=== PATIENT | female | born 1975 | race Caucasian/White ===

== ENCOUNTER 2019-05-29 13:23 | Emergency (ER) | payer OTHER, SELFPAY ==
[2019-05-29 13:41] VITALS: BP 134/91; PULSE 100; RESP 20; TEMP 37; O2SAT 97
--- NOTE | 2019-05-29 13:54 | ED.NAVMDI ---
HPI - Nausea/Vomiting/Diarrhea General Chief complaint: Nausea/Vomiting/Diarrhea Stated complaint: vomiting/body aches/headache Source: patient Mode of arrival: ambulatory Limitations: no limitations History of Present Illness HPI Narrative: 44 year old female presents to urgent care with complaints of nausea, vomiting, body aches, headache, chills diffuse abdominal pain since yesterday morning. Patient reports that her daughter had similar symptoms approximately 3 to 4 weeks ago. Patient reports that she was diagnosed with influenza B approximately 2 weeks ago. Patient reports that she was able to eat toast and drink Gatorade today with no difficulties. Patient denies recent travel. Patient is a non-smoker. Patient denies ear pain, cough, nasal congestion or runny nose MD elicited complaint: nausea and vomiting Onset (ago): day(s) (1) Associated nausea: Yes Associated abdominal pain: Yes Location of pain: diffuse Pain consistency: intermittent Quality: cramping Exacerbating factors: eating Relieving factors: none Context: sick contacts Related Data Home Medications Medication Instructions Recorded Confirmed albuterol sulfate 90 mcg/actuation 1 inhalation INHALATION Q4H 02/28/19 04/30/19 aerosol inhaler alprazolam 0.5 mg tablet 0.5 mg PO DAILY 02/28/19 04/30/19 budesonide-formoterol HFA 80 2 puff INHALATION Q12H 02/28/19 04/30/19 mcg-4.5 mcg/actuation aerosol inhaler cholecalciferol (vitamin D3) 125 5,000 unit PO DAILY 02/28/19 04/30/19 mcg (5,000 unit) capsule lansoprazole 30 mg capsule,delayed 30 mg PO DAILY 02/28/19 04/30/19 release montelukast 10 mg tablet 10 mg PO DAILY 02/28/19 04/30/19 zolpidem 5 mg tablet 5 mg PO ONCE 02/28/19 04/30/19 lamotrigine 25 mg tablet 25 mg PO DAILY tablet 04/30/19 04/30/19 quetiapine 50 mg tablet 50 mg PO BID 04/30/19 04/30/19 venlafaxine 150 mg tablet,extended 150 mg PO DAILY 04/30/19 04/30/19 release 24 hr levonorgestrel-ethinyl estrad 05/29/19 05/29/19 Allergies Allergy/AdvReac Type Severity Reaction Status Date / Time Penicillins Allergy Unknown unk Verified 04/30/19 14:44 Review of Systems Review of Systems: All systems reviewed & are unremarkable except as noted in HPI and below Constitutional: Constitutional: Reports chills, Denies fatigue, Denies fever(s) and Denies weakness ENT: Denies dysphagia, Denies vertigo, Denies dizziness, Denies epistaxis and Denies nasal congestion Cardiovascular: Cardiovascular: Denies chest pain and Denies radiating jaw, neck or arm pain Respiratory: Respiratory: Denies chest congestion, Denies cough, Denies dyspnea and Denies wheezing Gastrointestinal: Gastrointestinal: Reports abdominal pain, Denies bloating, Denies constipation, Denies diarrhea, Reports nausea and Reports vomiting Musculoskeletal: Musculoskeletal: Denies back pain Integumentary/Breasts: Skin/Breast: Denies rash Neurologic: Denies confusion, Denies vertigo, Denies dizziness, Denies syncope, Denies focal weakness and Denies weakness PMFSH Past Medical History Medical History Acute pharyngitis, unspecified Acute recurrent maxillary sinusitis 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 Obesity, unspecified (02/06/16) Family History Family History Grandparent Family history of gout Cerebrovascular accident Diabetes mellitus Mother Family history of gout Father Hypertension Family history of diabetes mellitus in first degree relative Other Depression Social History Social History Smoking status: Never smoker Alcohol intake: current Exam Const: General: healthy appearing, no acute distress and alert Nutritional Appearance: well nourished Orientation/consciousness: patient oriented x3 HENMT: Head: normal to inspection Ears: external ears normal and TM's normal bilaterally Face an
[2019-05-29] MEDS: ONDANSETRON HCL ODT 4 MG TABLET PO (13:58)
== END 2019-05-29 14:08 | disposition home or self-care (01) ==
PROVIDERS: Emergency Provider Nurse Practitioner Family; PCP Physician Assistant
DX: K52.9 Noninfective gastroenteritis and colitis, unspecified (principal); E27.1 Primary adrenocortical insufficiency; E66.9 Obesity, unspecified
CPT/HCPCS: 87804; 99213; A9270; G0463

== ENCOUNTER → 2020-01-31 15:23 | Outpatient (CLI) | payer OTHER, SELFPAY ==
--- NOTE | ~2020-01-31 | MM_ITS ---
EXAMINATION: MM screening [facility] w kenneth HISTORY: Screening TECHNIQUE: Craniocaudal and mediolateral oblique 3-D tomosynthesis images were obtained and synthetic 2-D images were generated. CAD analysis was submitted and interpreted. COMPARISON: Comparison to multiple prior studies sequentially, with oldest reviewed study dated 06/22. BREAST PARENCHYMAL COMPOSITION: There are scattered areas of fibroglandular density. FINDINGS: There is no evidence of suspicious mass, calcification, or architectural distortion to sugg est malignancy in either breast. There has been no suspicious interval change. IMPRESSION: 1. No mammographic evidence of malignancy. 2. Recommend routine screening mammography in one year. BI-RADS Category 1: Negative Reviewed, dictated and finalized at location A. ING COORDINATOR
== END ==
PROVIDERS: Visit Provider Obstetrics & Gynecology
DX: Z12.31 Encounter for screening mammogram for malignant neoplasm of breast (principal)
CPT/HCPCS: 77063; 77067

== ENCOUNTER → 2021-03-16 12:12 | Outpatient (CLI) | payer OTHER, SELFPAY ==
--- NOTE | ~2021-03-16 | MM_ITS ---
EXAMINATION: MM screening [facility] BI w kenneth HISTORY: Screening mammogram TECHNIQUE: Craniocaudal and mediolateral oblique 3-D tomosynthesis images were obtained and synthetic 2-D images were generated. CAD analysis was submitted and interpreted. COMPARISON: 01/31/2020, 09/01/2017, 08/10/2016, 08/02/2016 BREAST PARENCHYMAL COMPOSITION: There are scattered areas of fibroglandular density. FINDINGS: There is no evidence of suspicious mass, calcification, or architectural distortion to sugg est malignancy in either breast. There has been no suspicious interval change. IMPRESSION: 1. No mammographic evidence of malignancy. 2. Recommend routine screening mammography in one year. BI-RADS Category 1: Negative Reviewed, dictated and finalized at location A. PLACEMENT OFFICER
== END ==
PROVIDERS: PCP Physician Assistant; Visit Provider Obstetrics & Gynecology
DX: Z12.31 Encounter for screening mammogram for malignant neoplasm of breast (principal)
CPT/HCPCS: 77063; 77067

== ENCOUNTER 2024-02-16 18:00 | Emergency (ER) | payer OTHER, SELFPAY ==
[2024-02-16 18:27] VITALS: BP 119/84; PULSE 86; RESP 16; TEMP 36.8; O2SAT 99
--- NOTE | 2024-02-16 18:58 | ED_ITS ---
HPI - General Adult General Chief complaint: Nausea/Vomiting/Diarrhea Stated complaint: anal bleeding Time Seen by Provider: 02/16/24 18:58 Source: patient, RN notes reviewed and old records reviewed Mode of arrival: ambulatory Limitations: no limitations History of Present Illness HPI narrative: 48 year old female who presents to [facility] care with complaints of some anal bleeding which started on Tuesday and has been intermittent with pain to anal region. Patient reports that she has hemorrhoid in rectal area and she has been using various OTC preparation for hemorrhoids internally and also externally along with tucks and sitz baths. Patient reports that she is not having any present bleeding but continues to have pain to area.Pain tends to be sever with bowel movement and if sitting for any length of time. MD complaint: anal bleeding Onset (ago): day(s) (6 days intermittently) Location: buttocks (rectal area) Severity: severe (at times) Exacerbating factors: other (BM's and sitting) Treatments prior to arrival: other (internal and external hemorrhoid treatments, tucks and sitz baths) Related Data Home Medications Medication Instructions Recorded Confirmed alprazolam 0.5 mg tablet 0.5 mg PO DAILY 02/28/19 10/15/20 zolpidem 5 mg tablet (Ambien) 5 mg PO ONCE 02/28/19 10/15/20 Allergies Allergy/AdvReac Type Severity Reaction Status Date / Time Penicillins Allergy Unknown unk Verified 10/15/20 15:02 Review of Systems Review of Systems: CONSTITUTIONAL: Denies fever, chills, or sweats. EYES: Denies visual changes, redness, or discharge. ENT: Denies rhinorrhea, congestion, sore throat, or otalgia. CARDIOVASCULAR: Denies chest pain, palpitations, or edema. RESPIRATORY: Denies cough or dyspnea. GASTROINTESTINAL: Denies abdominal pain, nausea, vomiting, or diarrhea.anal bleeding bright red especially with BM's and pain to rectal area GENITOURINARY: Denies dysuria or hematuria. SKIN: Denies rash or itching. MUSCULOSKELETAL: Denies back pain, joint pain, or myalgia. NEUROLOGIC: Denies headache, numbness, or weakness. PSYCHIATRIC: Positive for history of anxiety or depression. 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 Obesity, unspecified (02/06/16) Surgical History Surgical History (Updated 02/18/24 @ 14:05 by Chiquis Verduzco NP) H/O gastric sleeve History of cholecystectomy Family History Family History Grandparent Family history of gout Cerebrovascular accident Diabetes mellitus Mother Family history of gout Father Hypertension Family history of diabetes mellitus in first degree relative Other Depression Social History Social History (Updated 02/18/24 @ 14:15 by Chiquis Verduzco NP) Smoking status: Never smoker Alcohol intake: current Alcohol use details: rare social Substance use type: does not use Gender identity (if verbalized by the patient): Female Comments At time of signature, agree with nursing past medical, surgical, social and family history. There is no relevant family history pertinent to the presenting complaint Exam Narrative: GENERAL: Well-appearing, well-nourished, and in no acute distress. HEAD: Normocephalic, atraumatic. EYES: PERRLA and EOMI. ENT: Nares clear, no rhinorrhea or epistaxis. Mucous membranes moist. NECK: Supple.no lymphadenopathy CHEST: Clear to auscultation. No respiratory distress.SAO2 99% on room air HEART: Regular rate and rhythm. No murmur heard. Normal peripheral pulses. ABDOMEN: Soft, nontender, nondistended, normal active bowel sounds. on examination external hemorrhoids noted with thrombosed hemorrhoid no active bleeding noted. EXTREMITIES: Normal range of motion. No edema. SKIN: Warm, dry, no rash. NEURO: No focal deficits. Alert and oriented x3. Course Course Emergency Course: Patient is aware of diagnosis, understands and agrees to treatment plan.? Antic ipatory guidance given.? Patient agrees to follow-up as directed and is aware of reasons to seek care at the emergency department. Portions of this record may have been created with voice recognition software Level of Care: Express Care Visit Vital Signs Vital signs: Vital Signs Temperature 36.8 C 02/16/24 18:27 Pulse Rate 86 02/16/24 18:27 Respiratory Rate 16 11/21/24 18:27 Blood Pressure 119/84 11/21/24 18:27 Pulse Oximetry 99 02/16/24 18:27 Temperature 36.8 C 02/16/24 18:27 Pulse Rate 86 02/16/24 18:27 Respiratory Rate 16 02/16/24 18:27 Blood Pressure 119/84 02/16/24 18:27 Pulse Oximetry 99 02/16/24 18:27 Reviewed Medical Decision Making MDM Narrative Medical decision making narrative: Exam findings and imaging show no acute concerns or changes; patient is non- toxic appearing and is in no distress.? Patient is appropriate for outpatient treatment and follow-up Differential Diagnosis Differential Diagnosis: anal bleeding, rectal pain,hemorrhoids external, thrombosed external hemorrhoid Medical Records Medical records reviewed: Yes I reviewed the external patient's medical records. Vital Signs Vital Signs: Vital Signs Temperature 36.8 C 02/16/24 18:27 Pulse Rate 86 02/16/24 18:27 Respiratory Rate 16 02/16/24 18:27 Blood Pressure 119/84 02/16/24 18:27 Pulse Oximetry 99 02/16/24 18:27 Temperature 36.8 C 02/16/24 18:27 Pulse Rate 86 02/16/24 18:27 Respiratory Rate 16 02/16/24 18:27 Blood Pressure 119/84 02/16/24 18:27 Pulse Oximetry 99 02/16/24 18:27 reviewed Critical Care Time Critical Care Time Critical Care Time: No Discharge Plan Discharge Clinical Impression: External hemorrhoid, thrombosed, Rectal bleed Patient Disposition: Home, Self-Care Condition: Stable Instructions: Antibiotic Form, Hemorrhoids (ED), Rectal Bleeding (ED) Additional Instructions: Sitz baths 2-3 times daily tepid water you may use suppositories as prescribed with tucks to anal area for comfort keep stool soft may need to use stool softeners daily or milk of magnesia avoid prolonged sitting follow-up with surgeon on-call Dr. Bolivar call [phone] If your symptoms persist, change or worsen significantly before you can contact your personal physician then please, without delay, go to the emergency department for further evaluation. Follow-up with PCP in 7-10 days or sooner if needed Prescriptions: New hydrocortisone acetate [Anusol-HC] 25 mg suppository 25 mg RECTAL BID Qty: 12 0RF No Action alprazolam 0.5 mg tablet 0.5 mg PO DAILY zolpidem [Ambien] 5 mg tablet 5 mg PO ONCE Symbicort 80-4.5 mcg/actuation HFA aerosol inhaler 2 puff INHALATION Q12H Qty: 10.2 11RF Rx Instructions: rinse and spit after each use, use with spacer albuterol sulfate [ProAir HFA] 90 mcg/actuation HFA aerosol inhaler 1 inh INHALATION Q4-6H PRN (Reason: shortness of breath or wheezing) Qty: 8.5 2RF Follow-up/Referrals: Guanakito,Jason Ramirez MD [Primary Care Provider] - Stand Alone Forms: Work/School Release IP Time of Disposition: 19:04 Quality Andreina Coma Scale Eyes: Open Verbal: Oriented and Alert Motor: Follows Commands Andreina Coma Total Score: 15
== END 2024-02-16 19:11 | disposition home or self-care (01) ==
PROVIDERS: Emergency Provider Registered Nurse; PCP Family Medicine
DX: K64.5 Perianal venous thrombosis (principal); J45.909 Unspecified asthma, uncomplicated; E27.1 Primary adrenocortical insufficiency; G73.7 Myopathy in diseases classified elsewhere; F41.9 Anxiety disorder, unspecified; E66.9 Obesity, unspecified; Z68.25 Body mass index [BMI] 25.0-25.9, adult; Z98.84 Bariatric surgery status
CPT/HCPCS: 99213; G0463

== ENCOUNTER 2024-02-25 17:42 | Emergency (ER) | payer OTHER, SELFPAY ==
--- NOTE | 2024-02-25 17:43 | ED_ITS ---
HPI - URI/Sore Throat General Chief Complaint: Upper Respiratory Infection Stated Complaint: Sore Throat/Cough Time Seen by Provider: 02/25/24 17:43 Source: patient Mode of arrival: ambulatory Limitations: no limitations History of Present Illness HPI Narrative: Vi is a 48-year-old female patient presenting to the clinic today with complaints of nasal congestion, nonproductive cough, and sore throat x2 days. She denies any fevers, chills, chest pain or shortness of breath. MD elicited complaint: fever, cough, sore throat and nasal congestion Related Data Home Medications Medication Instructions Recorded Confirmed cholecalciferol (vitamin D3) 25 25 mcg PO DAILY 02/20/24 02/25/24 mcg (1,000 unit) capsule semaglutide (weight loss) 0.25 0.25 mg subcut WEEKLY 02/20/24 02/25/24 mg/0.5 mL subcutaneous pen injector (Wegovy) Allergies Allergy/AdvReac Type Severity Reaction Status Date / Time No Known Allergies Allergy Verified 02/25/24 17:56 Review of Systems Review of Systems: Pertinent positives per HPI. Patient denies any fever, chills, rash, headache, visual changes, dizziness, shortness of breath, chest pain, palpitations, nausea, vomiting, diarrhea, constipation, abdominal pain, or any urinary issues. 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 Obesity, unspecified (02/06/16) Surgical History Surgical History H/O gastric sleeve History of cholecystectomy Family History Family History Grandparent Family history of gout Cerebrovascular accident Diabetes mellitus Mother Family history of gout Father Hypertension Family history of diabetes mellitus in first degree relative Other Depression Social History Social History Smoking status: Never smoker Alcohol intake: current Alcohol use details: rare social Substance use type: does not use Do You Feel Safe in your Home?: Yes Lack of Transportation: No Lack of Food: Never True Current Housing: I Have Housing Concerned About Future Housing: No Difficulty Paying Gas/Electric Bills: No Difficulty Paying for Meds: No Currently Unemployed: No Education: High School Diploma/GED Difficulty w/ Childcare or Family Care: No Living arrangements: alone Gender identity (if verbalized by the patient): Female Comments At the time of my signature, I reviewed and agree with the nursing past medical, surgical, social, and family history. There is no relevant family history pertinent to the patient complaint. Exam Narrative: General: Well-developed, well nourished, in no apparent distress Head: Normocephalic, atraumatic Eyes: Pupils equally round and reactive to light bilaterally, EOM intact, sclera and conjunctive clear, no discharge, lids normal Ears: TMs intact and clear, ear canals clear, no drainage, grossly hearing normal. Nose: Nares patent, clear nasal discharge, no inflammation, no sinus tenderness. Mouth: Oral pharynx red without lesions or masses, good dentition, MMM. Neck: Supple, trachea midline, no enlargement of anterior or posterior cervical nodes, no thyroid masses or goiter palpable. Cardio: Regular rate and rhythm, s1 and s2 normal, no murmur appreciated. Resp: Clear to auscultation bilaterally, no rhonchi, rales, wheezing or rubs Course Course Emergency Course: Portions of this record may have been created with voice recognition software. Level of Care: Express Care Visit Vital Signs Vital signs: Vital signs reviewed MDM - URI/Sore Throat MDM Narrative Medical decision making narrative: At the time of visit patient is resting comfortably on the exam table. Patient appears to be nontoxic. Labs: COVID, influenza, and strep test were performed. All testing was negative in the clinic today. Plan: I suspect patient has URI/pharyngitis. Supportive measures were discussed with the patient and they voiced understanding discharge instructions and agrees to treatment plan. Return precautions reviewed Differential Diagnosis Differential diagnosis: Likely upper respiratory infection, otitis media, sinusitis, viral infection, bronchitis, influenza, pharyngitis and other (COVID) Discharge Plan Discharge Clinical Impression: Upper respiratory infection, Pharyngitis Patient Disposition: Home, Self-Care Condition: Stable Instructions: Antibiotic Form, Upper Respiratory Infection (ED), Pharyngitis (ED) Additional Instructions: COVID, influenza, and strep test were all negative in the clinic today. We will send strep for culture if this comes back positive we will contact him place you on antibiotics at that time. May take DayQuil/NyQuil for cold/flu symptoms Increase fluids and stay well hydrated Tylenol/motrin for pain/fever Flonase and OTC antihistamines as directed Vicks vapor rub to open sinuses Sinus rinses for congestion Cepacol spray, cough drops, throat lozenges, warm tea with honey/lemon, gargle salt water to soothe throat BRAT diet for diarrhea Clear liquids x 24 hours then advance as tolerated for nausea/vomiting Go to the ED if you develop a worsening in your condition- high fever not controlled by Tylenol or Motrin, dehydration, weakness, lethargy, shortness of breath, or chest pain. Follow up with your PCP in 3-5 days if symptoms persist. Prescriptions: No Action Wegovy 0.25 mg/0.5 mL pen injector 0.25 mg subcut WEEKLY Rx Instructions: administer weeks 1 through 4 of therapy cholecalciferol (vitamin D3) 25 mcg (1,000 unit) capsule 25 mcg PO DAILY Follow-up/Referrals: UNKNOWN,DOCTOR [Non-Staff] - Time of Disposition: 18:27 Quality NIHSS Nursing Documentation ED NIHSS nursing documentation: reviewed/agree
[2024-02-25 18:07] VITALS: BP 113/84; PULSE 99; RESP 16; TEMP 36.7; O2SAT 98
[2024-02-25 18:09] LABS: EDSTREPNEGPOS1 Negative (Negative)
[2024-02-25 18:28] LABS: EDCOVIDSCREEN Negative (Negative); EDINFLUASCREEN Negative (Negative); EDINFLUBSCREEN Negative (Negative)
== END 2024-02-25 18:29 | disposition home or self-care (01) ==
PROVIDERS: Emergency Provider Nurse Practitioner Family
DX: J06.9 Acute upper respiratory infection, unspecified (principal); J02.9 Acute pharyngitis, unspecified; Z20.822 Contact with and (suspected) exposure to COVID-19; E66.9 Obesity, unspecified; Z68.25 Body mass index [BMI] 25.0-25.9, adult; E27.1 Primary adrenocortical insufficiency; Z98.84 Bariatric surgery status
CPT/HCPCS: 87081; 87426; 87804; 87880; 99213; G0463

== ENCOUNTER 2024-09-21 18:33 | Emergency (ER) | payer OTHER, SELFPAY ==
--- NOTE | 2024-09-21 18:35 | ED_ITS ---
HPI - Female Genitourinary General Chief complaint: Urogenital-Female Stated complaint: Uti/Bv Symptoms Time Seen by Provider: 09/21/24 18:43 Source: patient and RN notes reviewed Mode of arrival: ambulatory Limitations: no limitations History of Present Illness HPI Narrative: 49-year-old female presents with concern for foul-smelling vaginal discharge. She reports she was seen by her primary care yesterday and was tested for UTI, the urine has been sent out for culture. Reports she was given a Rocephin shot and a 1 time dose of azithromycin. She reports her symptoms have not improved and she is concern for BV. Reports her vaginal discharge is foul smelling. MD elicited complaint: vaginal discharge Related Data Home Medications ?Medication ?Instructions ?Recorded ?Confirmed ?Last Taken ?Type cholecalciferol (vitamin D3) 25 25 mcg PO DAILY 02/20/24 02/25/24 Unknown History mcg (1,000 unit) capsule semaglutide (weight loss) 0.25 0.25 mg subcut WEEKLY 02/20/24 02/25/24 Unknown History mg/0.5 mL subcutaneous pen injector (Wegovy) Allergies Allergy/AdvReac Type Severity Reaction Status Date / Time No Known Allergies Allergy Verified 09/21/24 18:46 Review of Systems Review of Systems: CONSTITUTIONAL: Denies malaise, chills, sweats, or fever. CARDIOVASCULAR: Denies chest pain, palpitations, or edema. RESPIRATORY: Denies cough or dyspnea. GASTROINTESTINAL: Denies abdominal pain, nausea, vomiting, diarrhea GENITOURINARY: Reports occasional dysuria, foul-smelling vaginal discharge. Denies frequency, urgency, suprapubic pressure. Denies flank pain or hematuria. SKIN: Denies rash or itching. MUSCULOSKELETAL: Denies back pain or myalgia. 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 Obesity, unspecified (02/06/16) Surgical History Surgical History H/O gastric sleeve History of cholecystectomy Family History Family History Grandparent Family history of gout Cerebrovascular accident Diabetes mellitus Mother Family history of gout Father Hypertension Family history of diabetes mellitus in first degree relative Other Depression Social History Social History Smoking status: Never smoker Alcohol intake: current Alcohol use details: rare social Substance use type: does not use Do You Feel Safe in your Home?: Yes Lack of Transportation: No Lack of Food: Never True Current Housing: I Have Housing Concerned About Future Housing: No Difficulty Paying Gas/Electric Bills: No Difficulty Paying for Meds: No Currently Unemployed: No Education: High School Diploma/GED Difficulty w/ Childcare or Family Care: No Living arrangements: alone Gender identity (if verbalized by the patient): Female Comments At time of signature, agree with nursing past medical, surgical, social and family history. There is no relevant family history pertinent to the presenting complaint Exam Narrative: GENERAL: Well-appearing, well-nourished, and in no acute distress. HEAD: Normocephalic. EYES: PERRLA, conjunctivae clear. NECK: Supple. No lymphadenopathy CHEST: Clear to auscultation. No respiratory distress. HEART: Regular rate and rhythm. SKIN: Warm, dry, no rash. NEURO: Alert and oriented x3. PSYCH: Normal mood and affect Course Course Emergency Course: Patient is aware of diagnosis, understands and agrees to treatment plan. Anticipatory guidance given. Patient agrees to follow-up as directed and is aware of reasons to seek care at the emergency department. Portions of this record may have been created with voice recognition software Level of Care: Express Care Visit Vital Signs Vital signs: Reviewed. MDM - Female Genitourinary MDM Narrative Medical decision making narrative: Exam findings show no acute concerns or changes; patient is non-toxic appearing and is in no distress. Patient is appropriate for outpatient treatment and fo llow-up. Differential Diagnosis Differential diagnosis: Likely urinary tract infection and cystitis Critical Care Time Critical Care Time Critical Care Time: No Discharge Plan Discharge Clinical Impression: Problematic vaginal discharge Patient Disposition: Home Condition: Stable Instructions: Antibiotic Form, Bacterial Vaginosis (ED) Additional Instructions: 1) Please follow-up with your primary care doctor in the next 1-2 days. 2) If you have any worsening of symptoms or any other urgent concerns please go to the ER. 3) Please take medications as prescribed and continue taking your home medications as usual. 4) Please read and follow information included in discharge instructions. Patient Language: Lithuanian Prescriptions: New metronidazole 500 mg tablet 500 mg PO BID 7 Days Qty: 14 0RF No Action Wegovy 0.25 mg/0.5 mL pen injector 0.25 mg subcut WEEKLY Rx Instructions: administer weeks 1 through 4 of therapy cholecalciferol (vitamin D3) 25 mcg (1,000 unit) capsule 25 mcg PO DAILY Follow-up/Referrals: Guanakito,Jason Ramirez MD [Primary Care Provider] - Time of Disposition: 18:53
[2024-09-21 18:44] VITALS: BP 112/78; PULSE 88; RESP 16; TEMP 36.6; O2SAT 99
[2024-09-24 13:58] LABS: Bacterial Vaginosis NEGATIVE (NEGATIVE)
== END 2024-09-21 19:03 | disposition home or self-care (01) ==
PROVIDERS: Emergency Provider Nurse Practitioner; PCP Family Medicine
DX: N89.8 Other specified noninflammatory disorders of vagina (principal)
CPT/HCPCS: 81513; 99213; G0463

== ENCOUNTER 2024-11-16 14:46 | Outpatient (CLI) | payer OTHER, SELFPAY ==
--- NOTE | ~2024-11-16 | XR_ITS ---
CHEST RADIOGRAPH, PA AND LATERAL CLINICAL HISTORY: Encounter for other preprocedural examination . COMPARISON: 11/30/2013 TECHNIQUE: PA and lateral views of the chest. FINDINGS The cardiomediastinal silhouette is unremarkable. The lungs are clear. IMPRESSION: No focal infiltrate or effusion. Reviewed, dictated and finalized at location A.
== END 2024-11-16 14:47 | disposition home or self-care (01) ==
LOC: MICIMG 14:51
PROVIDERS: PCP Family Medicine; Visit Provider Family Medicine
DX: Z01.818 Encounter for other preprocedural examination (principal)
CPT/HCPCS: 71046

== ENCOUNTER 2024-12-07 10:43 | Outpatient (CLI) | payer OTHER, SELFPAY ==
--- NOTE | ~2024-12-07 | MM_ITS ---
EXAMINATION: screening [facility] w kenneth INDICATION: Asymptomatic, referred for screening mammogram COMPARISON: 03/16/2021 through 08/02/2016 TECHNIQUE: Digital Breast Tomosynthesis CC, MLO views of Both breasts were obtained with computer-aided detection to assist in interpretation of the study. FINDINGS: There are scattered areas of fibroglandular density. There is an asymmetry seen on the cc view in the subareolar left breast at anterior third. Elsewhere, there are no mammographic features of malignancy. IMPRESSION: 1. Left breast Asymmetry. 2. No evidence of malignancy in the Right breast. RECOMMENDATION: Left breast Diagnostic mammogram with true lateral, appropriate spot compression views and an ultrasound if needed. BI-RADS Category 0: Incomplete: Needs additional imaging evaluation. Reviewed, dictated and finalized at location B. IMPRESSION: 1. Left breast Asymmetry. 2. No evidence of malignancy in the Right breast. RECOMMENDATION: Left breast Diagnostic mammogram with true lateral, appropriate spot compressio n views and an ultrasound if needed. BI-RADS Category 0: Incomplete: Needs additional imaging evaluation.
== END 2024-12-07 10:44 | disposition home or self-care (01) ==
LOC: MICIMG 10:44
PROVIDERS: PCP Family Medicine; Visit Provider Obstetrics & Gynecology Gynecology
DX: Z12.31 Encounter for screening mammogram for malignant neoplasm of breast (principal); R92.8 Other abnormal and inconclusive findings on diagnostic imaging of breast
CPT/HCPCS: 77063; 77067

== ENCOUNTER 2025-01-22 08:24 | Outpatient (CLI) | payer OTHER, SELFPAY ==
--- NOTE | ~2025-01-22 | US_ITS ---
US breast LT limited 01/22/2025 08:38 Indication: Left breast asymmetry seen on recent screening mammogram. Interval breast lift surgery. Patient unable to tolerate mammogram currently. Limited left breast ultrasound performed. Procedure: Limited left breast ultrasound. Comparison: No prior studies for comparison. Findings: : At 12:00 in the periareolar location of the left breast there is a oval hypoechoic 5 mm mass with parallel orientation, circumscribed margins and no internal vascularity, likely benign. There is irregular hypoechoic soft tissue in the area of scarring at 6:00, consistent with recent surgery. Impression: 1: Probable benign left breast mass at 12:00, near the areola. BI-RADS CATEGORY 3-PROBABLY BENIGN FINDING RECOMMENDATION: 3 month follow-up diagnostic left mammogram and Limited left breast ultrasound recommended. Reviewed, dictated and finalized at location B. Impression: 1: Probable benign left breast mass at 12:00, near the areola. BI-RADS CATEGORY 3-PROBABLY BENIGN FINDING RECOMMENDATION: 3 month follow-up diagnostic left mammogram and Limited left br east ultrasound recommended.
== END 2025-01-22 08:25 ==
LOC: MICIMG 03-12 06:39
PROVIDERS: PCP Family Medicine; Visit Provider Family Medicine
DX: R92.8 Other abnormal and inconclusive findings on diagnostic imaging of breast (principal)
CPT/HCPCS: 76642

== ENCOUNTER 2025-03-12 08:49 | Outpatient (CLI) | payer OTHER, SELFPAY ==
--- NOTE | ~2025-03-12 | MM_ITS ---
EXAMINATION: MM diagnostic [facility] LT w kenneth INDICATION: 49-year old female; BI-RADS 0, callback to evaluate Left breast asymmetry COMPARISON: 12/07/2024 TECHNIQUE: Digital breast tomosynthesis True lateral view and CC and MLO views of Both breasts were obtained with computer-aided detection to assist in interpretation of the study. FINDINGS: There are scattered areas of fibroglandular density. The asymmetry seen in the subareolar Left breast on the screening mammogram is not visualized on this current study, compatible with normal overlapping tissue. IMPRESSION: Left breast finding represents superimposition of fibroglandular tissue. No further investigation necessary. RECOMMENDATION: Annual screening mammography in 12 months BI-RADS 2, BENIGN Reviewed, dictated and finalized at location A. 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 No fur ther investigation necessary. RECOMMENDATION: Annual screening mammography in 12 months BI-RADS 2, BENIGN
== END 2025-03-12 08:50 | disposition home or self-care (01) ==
LOC: MICIMG 08:50
PROVIDERS: PCP Obstetrics & Gynecology Gynecology; Visit Provider Family Medicine
DX: R92.8 Other abnormal and inconclusive findings on diagnostic imaging of breast (principal)
CPT/HCPCS: 77061; 77065; G0279